=== PATIENT | male | born 1975 | race Caucasian/White ===

== ENCOUNTER 2017-04-01 08:56 | Emergency (ER) | payer SELFPAY ==
[~2017-04-01] VITALS: Ht 177.8 cm; Wt 110.0 kg
[~2017-04-01 08:56] MED LIST: 1-ME1LIQ PO; AMOX500T PO; AUGM875 PO; CYCL-36 PO; DOXY100T PO; LOSA50TA PO; PROP20TA24 PO; SULF-154 PO; TYLE3 PO
[2017-04-01 09:00] VITALS: BP 188/114; PULSE 104; RESP 14; TEMP 98.3; O2SAT 100
[2017-04-01] MEDS ORDERED: LOSA100T2 PO ×2 (09:14→11:30)
[2017-04-01] MEDS ORDERED: IBUPROFEN 600 MG TAB PO ONE (10:15)
--- NOTE | 2017-04-01 10:35 | RADRPT ---
EXAM DATE/TIME: 04/01/2017 10:21 [place] COMPARISON: No previous studies available for comparison. INDICATIONS : Rolled left ankle, pain lateral and anterior sides MEDICAL HISTORY : None. SURGICAL HISTORY : None. ENCOUNTER: Initial ACUITY: 1 day PAIN SCORE: 5/10 LOCATION: Left ankle FINDINGS: Three view exam was performed of the left ankle. The bony structures are in normal alignment. No ev idence of fracture, dislocation, or soft tissue swelling. The ankle mortise is intact. Calcaneal sp urring. No radiopaque foreign bodies are seen. Bony mineralization is normal. CONCLUSION: 1. No acute fracture or dislocation. Ez Godoy MD on April 01, 2017 at 10:33 Board Certified Radiologist. This report was verified electronically.
--- NOTE | 2017-04-01 10:44 | PD ---
HPI Chief Complaint: Musculoskeletal Complaint Time Seen by Provider: 09:27 Travel History International Travel<30 days: No Contact w/Intl Traveler<30days: No Traveled to known affect area: No History of Present Illness HPI 41-year-old male complains of pain in the left ankle. He injured his knee about 5-7 days prior and has been favoring the opposite leg. While walking up some stairs he hyper-inverted the ankle causing pain. The injury occurred yesterday. He has been unable to walk on the leg and unable to work on the leg. No other injury to report now. Severity [id number]. It's much worse walking as noted. PFSH Past Medical History Diminished Hearing: No Hypertension: Yes Past Surgical History Surgical History: No Previous Surgery Social History Alcohol Use: Yes (occassionally) Tobacco Use: No Substance Use: No Allergies-Medications (Allergen,Severity, Reaction): Coded Allergies: No Known Allergies (Unverified Allergy, Unknown, 04/01/17) Reported Meds & Prescriptions Reported Meds & Active Scripts Active Reported Losartan-Hydrochlorothiazide 100-25 Mg Tab 1 Tab PO DAILY Review of Systems General / Constitutional: No: Fever HENT: No: Rhinorrhea Respiratory: No: Shortness of Breath Gastrointestinal: No: Nausea, Vomiting Physical Exam Narrative GENERAL: 41-year-old male pleasant well-nourished well-developed SKIN: Warm and dry. HEAD: Normocephalic. EYES: No scleral icterus. No injection or drainage. NECK: Supple, trachea midline. No JVD or lymphadenopathy. CARDIOVASCULAR: Regular rate and rhythm without murmurs, gallops, or rubs. RESPIRATORY: Breath sounds equal bilaterally. No accessory muscle use. GASTROINTESTINAL: Abdomen soft, non-tender, nondistended. MUSCULOSKELETAL: No cyanosis, or edema. BACK: Nontender without obvious deformity. No CVA tenderness. Data Data Last Documented VS Vital Signs Date Time Temp Pulse Resp B/P (MAP) Pulse Ox O2 Delivery O2 Flow Rate FiO2 04/01/17 09:00 98.3 104 14 188/114 (138) 100 Orders Orders Splint Or Brace Apply/Monitor (04/01/17 10:11) Crutches (04/01/17 10:11) Ibuprofen (Motrin) (04/01/17 10:15) Ice/Cold Pack (04/01/17 10:11) Ankle, Complete ([id number]) (04/01/17 10:11) Ed Discharge Order (04/01/17 10:40) MDM Medical Decision Making Medical Screen Exam Complete: Yes Emergency Medical Condition: Yes Medical Record Reviewed: Yes Differential Diagnosis Ankle fracture, ankle dislocation, contusion Narrative Course Last Impressions Ankle X-Ray 04/01/17 1011 Signed Impressions: Service Date/Time: March 10:21 - CONCLUSION: 1. No acute fracture or dislocation. Ez Godoy MD Splint with crutches provided. Work note provided. OLEG discussed with patient. Patient requests a losartan refill 100/25 for chronic hypertension. He has follow-up with a new primary care provider next week. We can assist with the refill. Diagnosis Primary Impression: Ankle sprain Qualified Codes: S93.402A - Sprain of unspecified ligament of left ankle, initial encounter Additional Impressions: Hypertension Qualified Codes: I10 - Essential (primary) hypertension Medication refill Referrals: Primary Care Physician 2 days Med/Other Pt SpecificInfo: Prescription(s) given Scripts Losartan-Hydrochlorothiazide (Losartan-Hydrochlorothiazide) 100-25 Mg Tab 1 TAB PO DAILY for Blood Pressure Management, #30 TAB 0 Refills Prov: Aaron Tinoco MD 04/01/17 Disposition: 01 DISCHARGE HOME Condition: Stable Aaron Tinoco MD Apr 01, 2017 10:43
== END 2017-04-01 12:03 | disposition home or self-care (01) ==
LOC: NEPE 08:56
DX: S93.402A Sprain of unspecified ligament of left ankle, initial encounter (principal); X50.0XXA Overexertion from strenuous movement or load, initial encounter; I10 Essential (primary) hypertension; Z76.0 Encounter for issue of repeat prescription
CPT/HCPCS: 73610; 99283; E0113; L1906